=== PATIENT | male | born 1960 | race Caucasian/White ===

== ENCOUNTER 2019-05-06 03:25 | Emergency (ER) | payer BC, OTHER, SELFPAY ==
[2019-05-06] MEDS ORDERED: ASPIRIN 81 MG CHEWABLE TABLET ONE (04:24)
[2019-05-06] MEDS ORDERED: NA CHLORIDE 0.9% 1,000 ML ONE (04:24)
[2019-05-06 04:57] LABS: Basophils % 0.8 % (0-1.3); Hematocrit 41.8 % (39.6-49.0); Lymphocytes % 28.9 % (15.3-44.8); MPV 8.4 fL (7.6-11.3); Protime INR 0.89; RBC Red Blood Cell Count 4.69 M/uL (4.33-5.43)
[2019-05-06 05:07] LABS: Urine Blood NEGATIVE (NEG); Urine Glucose NEGATIVE (NEG); Urine Protein NEGATIVE (NEG); Urine pH 5.5 (5.0-7.0)
[2019-05-06 05:13] LABS: ALT/SGPT 28 U/L (12-78); AST/SGOT 22 U/L (15-37); Albumin 3.6 g/dL (3.4-5.0); Alkaline Phosphatase 55 U/L (45-117); BUN Blood Urea Nitrogen 16 mg/dL (7-18); Bicarbonate 25 mmol/L (21-32); Bilirubin Direct < 0.1 mg/dL (0-0.2); Bilirubin Total 0.3 mg/dL (0.2-1.0); Glucose Level 101 mg/dL (74-106); Magnesium 2.3 mg/dL (1.8-2.4); NT PRO-BNP 17 pg/mL (<125); Potassium 3.9 mmol/L (3.5-5.1); Protein, Total 6.7 g/dL (6.4-8.2); Sodium Level 143 mmol/L (136-145); Troponin (Emerg Dept Use Only) < 0.02 ng/mL (0.0-0.045)
--- NOTE | 2019-05-06 06:47 | EDPHYS ---
Physician Documentation [facility] Name: Darryl Jimenez Age: 58 yrs Sex: Male : 1960 Arrival Date: 05/06/2019 Time: 03:28 Bed 5 Private MD: ED Physician Rudy Montes De Oca HPI: 05/06 04:14 This 58 yrs old Male presents to ER via Ambulatory with complaints of Arm caryn Pain, NUMBER FINGERS. 04:14 The patient or guardian complains of pain, that is acute. The complaints affect the caryn anterior aspect of left shoulder, left bicep, left hand, posterior aspect of left shoulder and left tricep. Context: The problem was sustained at home, resulted from unknown cause. Onset: The symptoms/episode began/occurred just prior to arrival, this morning. Treatment prior to arrival includes: no previous treatment. Modifying factors: The symptoms are alleviated by nothing. the symptoms are aggravated by movement. Associated signs and symptoms: The patient has no apparent associated signs or symptoms. Associated signs and symptoms: The patient has no apparent associated signs or symptoms. The patient has not experienced similar symptoms in the past. Historical: - Allergies: 03:35 No Known Allergies; tl2 - Home Meds: 03:35 None [Active]; tl2 - PMHx: 03:35 None; tl2 - PSHx: 03:35 right ear; tl2 - Immunization history:: Adult Immunizations up to date. - Social history:: Smoking status: Patient/guardian denies using tobacco. - Ebola Screening: : No symptoms or risks identified at this time. - Family history:: not pertinent. ROS: 04:14 Constitutional: Negative for fever, chills, and weight loss, Eyes: Negative for injury, caryn pain, redness, and discharge, ENT: Negative for injury, pain, and discharge, Neck: Negative for injury, pain, and swelling, Cardiovascular: Negative for chest pain, palpitations, and edema, Respiratory: Negative for shortness of breath, cough, wheezing, and pleuritic chest pain, Abdomen/GI: Negative for abdominal pain, nausea, vomiting, diarrhea, and constipation, Back: Negative for injury and pain, : Negative for injury, bleeding, discharge, and swelling, Skin: Negative for injury, rash, and discoloration, Neuro: Negative for headache, weakness, numbness, tingling, and seizure, Psych: Negative for depression, anxiety, suicide ideation, homicidal ideation, and hallucinations, Allergy/Immunology: Negative for hives, rash, and allergies, Endocrine: Negative for neck swelling, polydipsia, polyuria, polyphagia, and marked weight changes. 04:14 MS/extremity: Positive for pain, of the anterior aspect of left shoulder, left bicep, posterior aspect of left shoulder and left tricep. Exam: 04:14 Constitutional: This is a well developed, well nourished patient who is awake, alert, caryn and in no acute distress. Head/Face: Normocephalic, atraumatic. Eyes: Pupils equal round and reactive to light, extra-ocular motions intact. Lids and lashes normal. Conjunctiva and sclera are non-icteric and not injected. Cornea within normal limits. Periorbital areas with no swelling, redness, or edema. ENT: Nares patent. No nasal discharge, no septal abnormalities noted. Tympanic membranes are normal and external auditory canals are clear. Oropharynx with no redness, swelling, or masses, exudates, or evidence of obstruction, uvula midline. Mucous membranes moist. Neck: Trachea midline, no thyromegaly or masses palpated, and no cervical lymphadenopathy. Supple, full range of motion without nuchal rigidity, or vertebral point tenderness. No Meningismus. Chest/axilla: Normal chest wall appearance and motion. Nontender with no deformity. No lesions are appreciated. Cardiovascular: Regular rate and rhythm with a normal S1 and S2. No gallops, murmurs, or rubs. Normal PMI, no JVD. No pulse deficits. Respiratory: Lungs have equal breath sounds bilaterally, clear to auscultation and percussion. No rales, rhonchi or wheezes noted. No increased work of breathing, no retractions or nasal flaring. Abdomen/GI: Soft, non-tender, with normal bowel sounds. No distension or tympany. No guarding or rebound. No evidence of tenderness throughout. Back: No spinal tenderness. No costovertebral tenderness. Full range of motion. Male : Normal genitalia with no discharge or lesions. Skin: Warm, dry with normal turgor. Normal color with no rashes, no lesions, and no evidence of cellulitis. MS/ Extremity: Pulses equal, no cyanosis. Neurovascular intact. Full, normal range of motion. Neuro: Awake and alert, GCS 15, oriented to person, place, time, and situation. Cranial nerves II-XII grossly intact. Motor strength 5/5 in all extremities. Sensory grossly intact. Cerebellar exam normal. Normal gait. Psych: Awake, alert, with orientation to person, place and time. Behavior, mood, and affect are within normal limits. 04:16 Musculoskeletal/extremity: DVT Exam: No signs of deep vein thrombosis. no pain, no caryn swelling, no tenderness, negative Homans' sign noted on exam, no appreciated bluish discoloration, no erythema, no increased warmth. 06:41 Back: pain, that is mild, ROM is painful, normal spinal alignment noted, CVA caryn tenderness, is absent, vertebral tenderness, is not appreciated, left upper trapezius pain. Vital Signs: 03:35 BP 162 / 97; Pulse 64; Resp 18; Temp 97.9(O); Pulse Ox 99% on R/A; Weight 88.45 kg; tl2 Height 5 ft. 4 in. (162.56 cm); Pain 7/10; 04:00 BP 123 / 82; Pulse 60; Resp 18; Pulse Ox 96% on R/A; lp1 05:18 BP 123 / 82; Pulse 52; Resp 15; Pulse Ox 96% on R/A; tl2 06:20 BP 120 / 82; Pulse 52; Resp 16; Pulse Ox 97% on R/A; lp1 07:47 BP 127 / 85; Pulse 62; Resp 16; Temp 98; Pulse Ox 97% ; bp 03:35 Body Mass Index 33.47 (88.45 kg, 162.56 cm) tl2 MDM: 03:58 Patient medically screened. [facility] 04:16 Data reviewed: vital signs, nurses notes, lab test result(s), EKG, radiologic studies, caryn plain films. 05/06 04:14 Order name: Basic Metabolic Panel; Complete Time: 05: [facility] 05/06 04:14 Order name: CBC with Diff; Complete Time: 05:19 [facility] 05/06 04:14 Order name: LFT's; Complete Time: 05:19 [facility] 05/06 04:14 Order name: Magnesium; Complete Time: 05:19 [facility] 05/06 04:14 Order name: NT PRO-BNP; Complete Time: 05:19 [facility] 05/06 04:14 Order name: PT-INR; Complete Time: 05:19 [facility] 05/06 04:14 Order name: Troponin (emerg Dept Use Only); Complete Time: 05:19 [facility] 05/06 04:14 Order name: XRAY Chest (1 view) [facility] 05/06 04:54 Order name: Urine Dipstick--Ancillary (enter results); Complete Time: 05:19 lp 05/06 05:20 Order name: C Spine Ap/Lat XRAY [facility] 05/06 05:20 Order name: Troponin (emerg Dept Use Only): 530am; Complete Time: 06:40 [facility] 05/06 04:14 Order name: EKG; Complete Time: 04:17 [facility] 05/06 04:14 Order name: Cardiac monitoring; Complete Time: 04:31 [facility] 05/06 04:14 Order name: EKG - Nurse/Tech; Complete Time: 04:31 [facility] 05/06 04:14 Order name: IV Saline Lock; Complete Time: 04:31 [facility] 05/06 04:14 Order name: Labs collected and sent; Complete Time: 04: [facility] 05/06 04:14 Order name: O2 Per Protocol; Complete Time: 04:31 [facility] 05/06 04:14 Order name: O2 Sat Monitoring; Complete Time: 04:31 [facility] 05/06 04:48 Order name: Urine Dipstick-Ancillary (obtain specimen); Complete Time: 04:53 [facility] Administered Medications: 04:40 Drug: Aspirin Chewable Tablet 324 mg Route: PO; lp1 05:27 Follow up: Response: No adverse reaction lp1 04:41 Drug: NS 0.9% 1000 ml Route: IV; Rate: 75 ml/hr; Site: right antecubital; lp1 07:01 Drug: Decadron - Dexamethasone 10 mg Route: IVP; Site: right antecubital; lp1 07:14 Follow up: Response: Pain is decreased bp 07:01 Drug: TORadol 30 mg Route: IVP; Site: right antecubital; lp1 07:14 Follow up: Response: Pain is decreased bp Disposition: 05/06/19 06:46 Discharged to Home. Impression: Strain of muscle and tendon of back wall of thorax, Radiculopathy, cervical region, Other chest pain - atypical. - Condition is Stable. - Discharge Instructions: Back Pain, Adult, Cervical Radiculopathy, Nonspecific Chest Pain, Nonspecific Chest Pain, [id number], Back Pain, Adult, [id number], Aspirin and Your Heart, Cervical Radiculopathy, [id number]. - Prescriptions for Medrol (Mikel) 4 mg Oral Tablets, Dose Pack - take 1 tablet by ORAL route as directed - follow package instructions; 1 packet. Motrin IB 200 mg Oral Tablet - take 2 tablet by ORAL route every 6 hours As needed as needed with food; 30 tablet. - Medication Reconciliation Form, Thank You Letter, Antibiotic Education, Prescription Opioid Use form. - Follow up: Private Physician; When: 2 - 3 days; Reason: Recheck today's complaints, Continuance of care, Re-evaluation by your physician. Follow up: Robbi Pandey MD; When: 2 - 3 days; Reason: Recheck today's complaints, Re-evaluation by your physician. - Problem is new. - Symptoms have improved. Signatures: Dispatcher [employer] EDMS Rudy Montes De Oca MD MD cha Pena, Laura, RN RN lp1 Brittney Putnam, RN RN tl2 Arias Hernandez, KRISTOPHER RN bp Corrections: (The following items were deleted from the chart) 07:48 06:46 05/06/2019 06:46 Discharged to Home. Impression: Strain of muscle and tendon of bp back wall of thorax; Radiculopathy, cervical region; Other chest pain - atypical. Condition is Stable. Forms are Medication Reconciliation Form, Thank You Letter, Antibiotic Education, Prescription Opioid Use. Follow up: Private Physician; When: 2 - 3 days; Reason: Recheck today's complaints, Continuance of care, Re-evaluation by your physician. Follow up: Robbi Pandey; When: 2 - 3 days; Reason: Recheck today's complaints, Re-evaluation by your physician. Problem is new. Symptoms have improved. caryn
--- NOTE | 2019-05-06 06:47 | ER ---
Nurse's Notes [facility] Name: Darryl Jimenez Age: 58 yrs Sex: Male : 1960 Arrival Date: 05/06/2019 Time: 03:28 Bed 5 Private MD: Diagnosis: Strain of muscle and tendon of back wall of thorax;Radiculopathy, cervical region;Other chest pain-atypical Presentation: 05/06 03:34 Presenting complaint: Patient states: aching pain in left shoulder that has travelled tl2 to left upper arm x 2 days, also reports tingling in fingers on right hand. Denies chest pain, shortness of breath or any other symptoms. Transition of care: patient was not received from another setting of care. Onset of symptoms was May 03, 2019. Risk Assessment: Do you want to hurt yourself or someone else? Patient reports no desire to harm self or others. Initial Sepsis Screen: Does the patient meet any 2 criteria? No. Patient's initial sepsis screen is negative. Does the patient have a suspected source of infection? No. Patient's initial sepsis screen is negative. Care prior to arrival: None. 03:34 Method Of Arrival: Ambulatory tl2 03:34 Acuity: RAMONE 3 tl2 Triage Assessment: 03:35 General: Appears in no apparent distress. uncomfortable, Behavior is calm, cooperative, tl2 appropriate for age. Pain: Complains of pain in anterior aspect of left shoulder, left bicep and left tricep Pain currently is 7 out of 10 on a pain scale. Quality of pain is described as aching, Alleviated by nothing. Neuro: Level of Consciousness is awake, alert, obeys commands, Oriented to person, place, time, situation, Speech is normal, Facial symmetry appears normal. Cardiovascular: Denies chest pain, diaphoresis, nausea, shortness of breath. Respiratory: Airway is patent Respiratory effort is even, unlabored, Respiratory pattern is regular, symmetrical. GI: No signs and/or symptoms were reported involving the gastrointestinal system. : No signs and/or symptoms were reported regarding the genitourinary system. Derm: Skin is pink, warm \T\ dry. Historical: - Allergies: 03:35 No Known Allergies; tl2 - Home Meds: 03:35 None [Active]; tl2 - PMHx: 03:35 None; tl2 - PSHx: 03:35 right ear; tl2 - Immunization history:: Adult Immunizations up to date. - Social history:: Smoking status: Patient/guardian denies using tobacco. - Ebola Screening: : No symptoms or risks identified at this time. - Family history:: not pertinent. Screenin:38 Abuse screen: Denies threats or abuse. Nutritional screening: No deficits noted. tl2 Tuberculosis screening: No symptoms or risk factors identified. Fall Risk None identified. Assessment: 03:45 General: Appears in no apparent distress. Behavior is appropriate for age. Pain: lp1 Complains of pain in posterior aspect of left shoulder and left tricep Pain does not radiate. Pain currently is 7 out of 10 on a pain scale. Quality of pain is described as sharp. Neuro: Level of Consciousness is awake, alert, obeys commands, Oriented to person, place, time, situation, Moves all extremities. Full function Gait is steady, Intact Reports paresthesias in posterior aspect of left shoulder and left tricep. Cardiovascular: Patient's skin is warm and dry. Respiratory: Respiratory effort is even, unlabored. GI: No signs and/or symptoms were reported involving the gastrointestinal system. : No signs and/or symptoms were reported regarding the genitourinary system. EENT: No signs and/or symptoms were reported regarding the EENT system. Derm: Skin is pink, warm \T\ dry. Musculoskeletal: Range of motion:. 04:45 Reassessment: Patient appears in no apparent distress at this time. No changes from lp1 previously documented assessment. Patient and/or family updated on plan of care and expected duration. Pain level reassessed. 06:00 Reassessment: Patient appears in no apparent distress at this time. Patient is alert, lp1 oriented x 3, equal unlabored respirations, skin warm/dry/pink. 07:00 Reassessment: RECD REPORT FROM CODRELIA SUMMERS. 58YO WM P/W SHOULDER PAIN AND HAND NUMBNESS. bp 07:46 Reassessment: PT D/C HOME AMBULATORY, DX WITH CERVICAL RADICULOPATHY. bp Vital Signs: 03:35 BP 162 / 97; Pulse 64; Resp 18; Temp 97.9(O); Pulse Ox 99% on R/A; Weight 88.45 kg; tl2 Height 5 ft. 4 in. (162.56 cm); Pain 7/10; 04:00 BP 123 / 82; Pulse 60; Resp 18; Pulse Ox 96% on R/A; lp1 05:18 BP 123 / 82; Pulse 52; Resp 15; Pulse Ox 96% on R/A; tl2 06:20 BP 120 / 82; Pulse 52; Resp 16; Pulse Ox 97% on R/A; lp1 07:47 BP 127 / 85; Pulse 62; Resp 16; Temp 98; Pulse Ox 97% ; bp 03:35 Body Mass Index 33.47 (88.45 kg, 162.56 cm) tl2 ED Course: 03:28 Patient arrived in ED. ag3 03:35 Triage completed. tl2 03:35 Arm band placed on right wrist. tl2 03:38 Patient has correct armband on for positive identification. Placed in gown. Bed in low tl2 position. Call light in reach. Side rails up X 1. 03:58 Rudy Montes De Oca MD is Attending Physician. caryn 04:25 Inserted saline lock: 20 gauge in right antecubital area, using aseptic technique. lp1 Blood collected. 04:31 Cordelia Kelley, RN is Primary Nurse. lp1 04:32 X-ray completed. Portable x-ray completed in exam room. Patient tolerated procedure mh1 well. 04:34 XRAY Chest (1 view) In Process Unspecified. EDMS 06:00 Troponin (emerg Dept Use Only): 530am Sent. tl2 06:03 C Spine Ap/Lat XRAY In Process Unspecified. EDMS 06:03 Patient moved to radiology via wheelchair. mh1 06:07 X-ray completed. Patient tolerated procedure well. Patient moved back from radiology. mh1 06:21 No provider procedures requiring assistance completed. lp1 06:43 Robbi Pandey MD is Referral Physician. caryn 07:46 IV discontinued, intact, bleeding controlled, No redness/swelling at site. Pressure bp dressing applied. Administered Medications: 04:40 Drug: Aspirin Chewable Tablet 324 mg Route: PO; lp1 05:27 Follow up: Response: No adverse reaction lp1 04:41 Drug: NS 0.9% 1000 ml Route: IV; Rate: 75 ml/hr; Site: right antecubital; lp1 07:01 Drug: Decadron - Dexamethasone 10 mg Route: IVP; Site: right antecubital; lp1 07:14 Follow up: Response: Pain is decreased bp 07:01 Drug: TORadol 30 mg Route: IVP; Site: right antecubital; lp1 07:14 Follow up: Response: Pain is decreased bp Outcome: 06:46 Discharge ordered by . caryn 07:46 Discharged to home ambulatory. bp 07:46 Condition: stable 07:46 Discharge instructions given to patient, Instructed on discharge instructions, follow up and referral plans. medication usage, Demonstrated understanding of instructions, follow-up care, medications, Prescriptions given X 2. 07:48 Patient left the ED. bp Signatures: Dispatcher [employer] EDMS Rudy Montes De Oca MD MD cha Harvey, Martha 1 Cordelia Kelley RN RN lp1 Brittney Putnam RN RN tl2 Arias Hernandez RN RN bp Dixie Pena 3
[2019-05-06] MEDS ORDERED: dexAMETHasone 10 MG/ML VIAL ONE (06:54)
[2019-05-06] MEDS ORDERED: KETOROLAC 30 MG/ML INJ ONE (06:55)
--- OUTSIDE RECORDS SUMMARY | 2019-05-06 12:47 | XMS REPORT | Continuity of Care Document ---
:1960 Author Organization [employer] [facility] Care Team Providers Name Role Phone [employer] Unavailable Unavailable Problems No Data Provided for This Section Medications No Data Provided for This Section Allergies, Adverse Reactions, Alerts No Known Medication Allergies Immunizations No Data Provided for This Section Results No Data Provided for This Section Pathology Reports No Data Provided for This Section Diagnostic Reports No Data Provided for This Section Consultation Notes No Data Provided for This Section Discharge Summaries No Data Provided for This Section History and Physicals No Data Provided for This Section Vital Signs No Data Provided for This Section Encounters Location Location Encounter Encounter Reason Attending ADM DC Status Source Details Type Number For Provider Date Date Visit Outpatient [id number] 08/02 Active [facility] Outpatient [id number] 08/18 [facility] [place] Procedures No Data Provided for This Section Assessment and Plan No Data Provided for This Section Plan of Care No Data Provided for This Section Social History No Data Provided for This Section Family History No Data Provided for This Section Advance Directives No Data Provided for This Section Functional Status No Data Provided for This Section
--- NOTE | 2019-05-06 14:41 | RAD REPORT ---
EXAM DESCRIPTION: RAD - Chest Single View - 05/06/2019 12:42 pm CLINICAL HISTORY: Cough, shortness of breath Due to technical malfunction and limited his ability of images, final report was delayed. COMPARISON: None. TECHNIQUE: AP portable chest image was obtained 0432 hours . FINDINGS: Lungs are clear of infiltrate or suspicious mass. Granuloma seen lower right lung field. H eart and vasculature are normal. No measurable pleural effusion and no pneumothorax. No acute bony ab normality seen. No acute aortic findings suspected. IMPRESSION: No acute cardiopulmonary process.
--- NOTE | 2019-05-06 14:48 | RAD REPORT ---
EXAM DESCRIPTION: RAD - C Spine Ap/Lat - 05/06/2019 12:42 pm CLINICAL HISTORY: Nontraumatic neck pain Due to technical malfunction is limited availability of images, final report was delayed. COMPARISON: None. FINDINGS: Cervical bodies are normal in height and alignment. No fracture or acute bony process seen . C6-7 disc space narrowing and endplate spurring changes are present. Facet joint degenerative johansen es are present scattered in the cervical spine. There is no prevertebral soft tissue thickening or other suspicious soft tissue finding. Carotid bulb calcifications are present. IMPRESSION: Cervical spine degenerative change present most notable at C6-7. No acute finding.
--- NOTE | 2019-05-07 07:45 | EKG ---
Test Date: 2019-05-06 Test Time: 04:36:03 [employer]: MICHELLE MEASUREMENT RESULTS: Intervals: Rate: 52 LA: 152 QRSD: 88 QT: 408 QTc: 379 [place]: P: 19 LA: 152 QRS: 9 T: 7 INTERPRETIVE STATEMENTS: Sinus bradycardia Otherwise normal ECG No previous ECG available for comparison Electronically Signed On 05-07-19 07:43:41 CDT by Janes Campbell
== END 2019-05-06 07:48 | disposition home or self-care (01) ==
LOC: ER 03:25
DX: S29.012A Strain of muscle and tendon of back wall of thorax, initial encounter (principal); M54.12 Radiculopathy, cervical region; R07.89 Other chest pain
CPT/HCPCS: 93005; 85025; 80048; 36415; 83735; 85610; 80076; 81003; 84484 ×2; 83880; 71045; 72040; 96375; 96374; 99284; J1100; J7030